=== PATIENT | female | born 1985 | race Caucasian/White ===

== ENCOUNTER 2016-06-28 11:10 | Emergency (ER) | payer OTHER ==
[2016-06-28] MEDS ORDERED: LORazepam INJ* 2 MG/ML 1 ML VIAL IV PUSH ONE (13:59)
--- NOTE | 2016-06-28 14:20 | RAD ---
Indication: Chest pain. Single frontal view of the chest performed at 1400 hours was reviewed. No prior study is available for comparison. No mediastinal shift is noted. Heart is of normal size and configuration. Lung chawla appear clear. IMPRESSION: NO ACTIVE CARDIOPULMONARY DISEASE IS NOTED.
[2016-06-28 14:29] LABS: Hematocrit 45 % (35-47); Hemoglobin 15.2 g/dl (12.0-16.0); Mean Corpuscular HGB Conc 34 g/dl (31-36); Mean Corpuscular Hemoglobin 31 pg (27-31); Mean Corpuscular Volume 92 fL (80-97); Mean Platelet Volume 9 um3 (7.4-10.4); Red Blood Count 4.87 10^6/ul (4.0-5.4); Red Cell Distribution Width 13 % (10.5-15); White Blood Count 6.5 10^3/ul (3.5-10.8)
[2016-06-28 14:46] LABS: BUN/Creatinine Ratio 11.8 (8-20); EGFR African American 130.7 (>60); EGFR Non-African American 101.6 (>60); Globulin 2.6 g/dL (2-4); Potassium 3.2 mmol/L (3.5-5.0); Total Bilirubin 0.6 mg/dL (0.2-1.0); Total Protein 7.6 g/dL (6.4-8.9)
[2016-06-28 15:26] LABS: TSH (Thyroid Stimulating Horm) 0.71 mcIU/mL (0.34-5.60)
[2016-06-28] MEDS ORDERED: Potassium Chlor TAB* 20 MEQ TAB.ER PO ONE (15:34)
--- NOTE | 2016-06-28 16:17 | ED ---
Brianne Carrillo Rebecca, scribed for Vladimir Poole MD on 06/28/16 at 1358 . HPI Chest Pain - HPI Summary HPI Summary: Pt is a 31 y/o F who presents to ED c/o CP. Pain began 3 days ago and has been constant since onset. Pain is in the right lateral region with radiation to the back, RUE and RLE. Pain is currently mild, ranked 3/10 and characterized as burning. Sx aggravated by deep breaths, alleviated by nothing, unchanged by Xanax. Additionally c/o pulsating in the neck and belching. SHx daily drinking for 4 years (ceased a few days ago). LNMP was 2015. PMHx scoliosis, anxiety. PSHx Paragard implantation (copper IUD) which she reports she "hasn't felt right" since then. No SHx smoking. - History of Current Complaint Chief Complaint: EDChestWallPain Time Seen by Provider: 06/28/16 13:50 Hx Obtained From: Patient Onset/Duration: Started Days Ago - 3 days ago, Still Present Timing: Constant Initial Severity: Mild Current Severity: Mild Pain Intensity: 3 Pain Scale Used: 0-10 Numeric Chest Pain Location: Right Lateral Chest Pain Radiates: Yes Chest Pain Radiates To:: Back, Arm - RUE, Other - RLE Character: Burning Aggravating Factor(s): Deep Breaths Alleviating Factor(s): Nothing Associated Signs and Symptoms: Positive: Chest Pain, Other: - Belching, pulsating in the neck - Allergy/Home Medications Allergies/Adverse Reactions: Allergies Allergy/AdvReac Type Severity Reaction Status Date / Time Amoxicillin Allergy Severe Hives Verified 06/28/16 11:20 Red Dye Allergy Severe Hives Verified 06/28/16 11:20 PMH/Surg Hx/FS Hx/Imm Hx Musculoskeletal History: Reports: Hx Scoliosis Psychiatric History: Reports: Hx Anxiety - Surgical History Surgery Procedure, Year, and Place: PARAGARD IMPLANTATION (MAY 25, 2016) Infectious Disease History: No Infectious Disease History: Denies: Traveled Outside the [place] in Last 30 Days - Family History Known Family History: Positive: Other - "skeletal issues," osteoarthritis, Crohn 's - Social History Alcohol Use: Daily - For 4 years, ceased a few days ago Hx Tobacco Use: No Smoking Status (MU): Never Smoked Tobacco Review of Systems Positive: Other Positive: Chest Pain - Right lateral Positive: Other - Belching Positive: Other - Pulsating in the neck All Other Systems Reviewed And Are Negative: Yes Physical Exam - Summary Physical Exam Summary: VITAL SIGNS: Reviewed. GENERAL: Patient is a anxious female. Patient is not in any acute respiratory distress. HEAD AND FACE: No signs of trauma. No ecchymosis, hematomas or skull depressions. No sinus tenderness. EYES: PERRLA, EOMI x 2, No injected conjunctiva, no nystagmus. EARS: Hearing grossly intact. Ear canals and tympanic membranes are within normal limits. MOUTH: Oropharynx within normal limits. NECK: Supple, trachea is midline, no adenopathy, no JVD, no carotid bruit, no c- spine tenderness, neck with full ROM. CHEST: Symmetric, no tenderness at palpation LUNGS: Clear to auscultation bilaterally. No wheezing or crackles. CVS: Regular rate and rhythm, S1 and S2 present, no murmurs or gallops appreciated. ABDOMEN: Soft, non-tender. No signs of distention. No rebound no guarding, and no masses palpated. Bowel sounds are normal. EXTREMITIES: FROM in all major joints, no edema, no cyanosis or clubbing. NEURO: Alert and oriented x 3. No acute neurological deficits. Speech is normal and follows commands. SKIN: Dry and warm Triage Information Reviewed: Yes Vital Signs On Initial Exam: Initial Vitals Temp Pulse Resp BP Pulse Ox 97.9 F 112 18 146/91 100 06/28/16 11:11 06/28/16 11:11 06/28/16 11:11 06/28/16 11:11 06/28/16 11:11 Vital Signs Reviewed: Yes Diagnostics - Vital Signs Vital Signs Temp Pulse Resp BP Pulse Ox 06/28/16 11:11 97.9 F 112 18 146/91 100 - Laboratory Result Diagrams: 06/28/16 14:17 06/28/16 14:17 Lab Statement: Any lab studies that have been ordered have been reviewed, and results considered in the medical decision making process. - Radiology CXR Xray Interpretation: No Acute Changes - NO ACTIVE CARDIOPULMONARY DISEASE IS NOTED. Radiology Interpretation Completed By: Radiologist - EKG 1128 Cardiac Rate: Tachycardia - 102 bpm EKG Rhythm: Sinus Tachycardia EKG Interpretation: No ST elevation Re-Evaluation - Re-Evaluation First Eval Re-Evaluation Time: 16:08 Change: Improved Comment: Pt is feeling significantly better. Chest Pain Course/Dx - Course Assessment/Plan: 31 y/o F who presents to ED with a CC of having CP that radiates out of the chest, anxiety, and nervousness for the last couple days. Pt went to another ER a couple days ago where they did a head CT and everything was normal. Test results w/in normal limits, EKG shows no ST elevation, CXR shows no cardiopulmonary disease. In the ED course, pt was given Ativan and all her sx resolved. At this time I disclosed all my findings and test results w/ pt and the need to follow up with PCP. Pt reports she has Xanax at home, she was recommended to only take when very anxious. She understands and agrees. Pt is hemodynamically stable and AxO x3. Patient reports that all symptoms have resolved. Patient has been observed in the ER for approximately 3 hours. Because the patient has no significant comorbidities and no family history of cardiovascular disease the patient will be discharged home with follow up of PMD. I discussed all the findings and test results with the patient. Patient was instructed to return to the emergency room immediately if any of the symptoms return or worsens. Patient understands and agrees. Plan of care was discussed with the patient and patient understands and agrees. All questions were answered at patient satisfaction. There were no further complaints or concerns. PE before discharge: CVS: S1 and S2 present. No murmurs appreciated. Abdominal exam before discharge: Soft, non-tender. No signs of distention. No rebound no guarding, and no masses palpated. Bowel sounds are normal. Patient is alert and oriented x 3. Patient is hemodynamically stable. - Diagnoses Provider Diagnoses: Chest pain, Anxiety Discharge - Discharge Plan Condition: Stable Disposition: HOME Patient Education Materials: Chest Pain (ED), Anxiety (ED) Referrals: Elvira Mcguire PA [Primary Care Provider] - 3 Days (Follow up with your primary care physician in 3 days. ) Additional Instructions: Return to ED for any returning or worsening symptoms. The documentation as recorded by the Brianne camejo Rebecca accurately reflects the service I personally performed and the decisions made by me, Vladimir Poole MD.
[2016-06-28 16:21] LABS: Urine Bilirubin Negative (Negative); Urine Glucose Negative (Negative); Urine Nitrite Negative (Negative)
[2016-06-28 16:33] VITALS: BP 135/84
== END 2016-06-28 16:33 | disposition home or self-care (01) ==
LOC: ED 11:10
DX: R07.9 Chest pain, unspecified (principal); F41.1 Generalized anxiety disorder
CPT/HCPCS: 36415; 71010; 80053; 81003; 82553; 83880; 84443; 84484; 85025; 93005; 96374; 99283; A9270-GY; J2060

== ENCOUNTER 2016-07-09 10:35 | Emergency (ER) | payer OTHER ==
[2016-07-09 11:35] VITALS: BP 145/98
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
== END 2016-07-09 13:01 | disposition home or self-care (01) ==
LOC: UCEAST 10:35
DX: F41.9 Anxiety disorder, unspecified (principal)
CPT/HCPCS: 99212; G0463

== ENCOUNTER 2016-08-14 12:44 | Emergency (ER) | payer OTHER ==
--- NOTE | 2016-08-14 13:45 | ED ---
Dhaval Carrillo Anna, scribed for Umu Boles MD on 08/14/16 at 1320 . HPI Chest Pain - HPI Summary HPI Summary: Patient is a 31 y/o female coming to [facility] presenting with chest wall pain that began two months ago. She additionally reports fatigue, bone pain, unintentional weight loss of 11 lbs in the past two months, soreness in right collar bone, itching in her scalp, right flank pain, and swollen and tender lymph nodes, especially on the right side. She denies urinary symptoms, vomiting , and diarrhea. She was recently dx with panic disorder. She has seen her doctor , who has not made any diagnosis after completion of blood work, US on neck, and MRI on neck. Her history is significant for scoliosis. She has been taking Klonopin since 07/01/2016. She spent much time camping outside this summer and lives near [facility]. She has not recently been sexually active. - History of Current Complaint Chief Complaint: EDGeneral Hx Obtained From: Patient Pain Intensity: 4 Pain Scale Used: 0-10 Numeric - Allergy/Home Medications Allergies/Adverse Reactions: Allergies Allergy/AdvReac Type Severity Reaction Status Date / Time Amoxicillin Allergy Severe Hives Verified 08/01/16 15:08 Red Dye Allergy Severe Hives Verified 08/01/16 15:08 PMH/Surg Hx/FS Hx/Imm Hx Endocrine/Hematology History: Denies: Hx Diabetes Cardiovascular History: Denies: Hx Hypertension, Hx Pacemaker/ICD, Other Cardiovascular Problems/ Disorders History: Denies: Hx Renal Disease Musculoskeletal History: Reports: Hx Scoliosis Sensory History: Denies: Hx Hearing Aid Psychiatric History: Reports: Hx Anxiety, Hx Panic Disorder - Surgical History Surgery Procedure, Year, and Place: PARAGARD IMPLANTATION (MAY 25, 2016) Infectious Disease History: No Infectious Disease History: Denies: Traveled Outside the [place] in Last 30 Days - Family History Known Family History: Positive: Other - "skeletal issues," osteoarthritis, Crohn 's, alcohol abuse disorders - Social History Lives: With Family Alcohol Use: was drink 3-4 drinks a day 3-4 times a week but st Alcohol Amount: 3-4 drinks per week Substance Use Type: Reports: None Hx Tobacco Use: No Smoking Status (MU): Never Smoked Tobacco Review of Systems Positive: Fatigue, Other - unintentional weight loss Positive: Other - swollen and tender lymphnodes Positive: Chest Pain Positive: Abdominal Pain - right flank pain. Negative: Diarrhea Positive: no symptoms reported Positive: Arthralgia Positive: Other - itchy scalp All Other Systems Reviewed And Are Negative: Yes Physical Exam Triage Information Reviewed: Yes Vital Signs On Initial Exam: Initial Vitals Temp Pulse Resp BP Pulse Ox 97.6 F 85 16 135/92 100 08/14/16 12:46 08/14/16 12:46 08/14/16 12:46 08/14/16 12:46 08/14/16 12:46 Vital Signs Reviewed: Yes Appearance: Positive: Well-Appearing, No Pain Distress Skin: Positive: Warm, Skin Color Reflects Adequate Perfusion, Dry Eyes: Positive: EOMI, ANA PAULA ENT: Positive: Pharynx normal, TMs normal Neck: Positive: Supple, Nontender Respiratory/Lung Sounds: Positive: Clear to Auscultation, Breath Sounds Present. Negative: Rales, Rhonchi, Wheezes Cardiovascular: Positive: RRR, Other - no gallops. Negative: Murmur, Rub Abdomen Description: Positive: Nontender, Soft, Other: - no rebound. Negative: Distended, Guarding Bowel Sounds: Positive: Present Musculoskeletal: Positive: Strength/ROM Intact. Negative: Edema Left, Edema Right Neurological: Positive: Sensory/Motor Intact, Alert, Oriented to Person Place, Time, CN Intact II-III - II-XII Psychiatric: Positive: Affect/Mood Appropriate Diagnostics - Vital Signs Vital Signs Temp Pulse Resp BP Pulse Ox 08/14/16 12:46 97.6 F 85 16 135/92 100 - Laboratory Lab Statement: Any lab studies that have been ordered have been reviewed, and results considered in the medical decision making process. Chest Pain Course/Dx - Course Course Of Treatment: 31 yo female with big workup by pmd and gi for multiple complaints. here becasue she still isnt' feeling better. talked with her about repeating some of her labs and adding on autoimmune labs and a 2nd lyme titer. Also suggested to pt she may want to look into alternative forms of medicine that may better address her concerns like [place] [facility] or accupuncture. Pt will make an appt with her pmd in several weeks to address the labs done today most of which are send outs. - Diagnoses Provider Diagnoses: Myalgia Discharge - Discharge Plan Condition: Stable Disposition: HOME Referrals: Micah Stover MD [Primary Care Provider] - Additional Instructions: Follow up with primary care physician regarding lab results. Return to the emergency department for changing or worsening symptoms. The documentation as recorded by the Dhaval camejo Anna accurately reflects the service I personally performed and the decisions made by me, Umu Boles MD.
[2016-08-14 13:58] LABS: Hematocrit 41 % (35-47); Mean Corpuscular HGB Conc 34 g/dl (31-36); Mean Corpuscular Hemoglobin 31 pg (27-31); Mean Corpuscular Volume 92 fL (80-97); Mean Platelet Volume 9 um3 (7.4-10.4); Red Blood Count 4.49 10^6/ul (4.0-5.4); Red Cell Distribution Width 13 % (10.5-15); White Blood Count 5.2 10^3/ul (3.5-10.8)
[2016-08-14 14:05] VITALS: BP 138/89
[2016-08-14 14:17] LABS: C Reactive Protein < 1.00 mg/L (< 5.00)
[2016-08-14 15:42] LABS: TSH (Thyroid Stimulating Horm) 0.84 mcIU/mL (0.34-5.60)
[2016-08-14 16:53] LABS: Erythrocyte Sed Rate 8 mm/Hr (0-14)
[2016-08-16 15:24] LABS: Lyme Disease IgG Ab WB Negative (Negative)
== END 2016-08-14 14:04 | disposition home or self-care (01) ==
LOC: ED 12:44
DX: M79.1 Myalgia (principal); R07.89 Other chest pain; R53.83 Other fatigue; R10.9 Unspecified abdominal pain; R63.4 Abnormal weight loss
CPT/HCPCS: 36415; 84443; 85025; 85652; 86038; 86140; 86617; 86663; 99282

== ENCOUNTER 2017-03-25 10:21 | Emergency (ER) | payer OTHER ==
[2017-03-25 10:53] VITALS: BP 117/85
--- NOTE | 2017-04-14 16:00 | UC ---
Samy Carrillo Benjamin, scribed for Keiko Quesada DO on 03/25/17 at 1143 . Cardiac HPI - HPI Summary HPI Summary: 31yo female right anterior and lateral chest pain for a week that radiates to right shoulder blade. Pt also reports intermittently getting SOB. PAin has been aching kind of pain until now but this morning, pt woke up with burning. Rates the pain as 4/10 scale. Pt states that her pain gets worse with heavy lifting and deep breathing. Pt also says she has been having increased frequency of urination for 2 months. Pt is under a lot of stress. FHx of CAD, DM, HTN. 1 month ago, pt has pain in her right ribs. - History of Current Complaint Chief Complaint: UCChestPain Stated Complaint: RIB PAIN Time Seen by Provider: 03/25/17 11:13 Hx Obtained From: Patient, Family/Clinical Geneticist - grandmother Hx Last Menstrual Period: 03/18/17 Onset/Duration: Gradual Onset, Lasting Days Timing: Intermittent Episodes Lasting: Initial Severity: Moderate Current Severity: Moderate Pain Intensity: 4 Chest Pain Location: Right Lateral Character: Sharp/Stabbing Aggravating Factor(s): Movement Alleviating Factor(s): Rest, Position Associated Signs & Symptoms: Positive: Recent Stress - Allergy/Home Medications Allergies/Adverse Reactions: Allergies Allergy/AdvReac Type Severity Reaction Status Date / Time Amoxicillin Allergy Severe Hives Verified 03/25/17 10:47 Red Dye Allergy Severe Hives Verified 03/25/17 10:47 PMH/Surg Hx/FS Hx/Imm Hx - Additional Past Medical History Additional PMH: spinal stenosis, DDD, scoliosis. - Surgical History Surgical History: None Surgery Procedure, Year, and Place: PARAGARD IMPLANTATION (MAY 25, 2016) - Family History Known Family History: Positive: Cardiac Disease, Hypertension, Diabetes, Other - "skeletal issues," osteoarthritis, Crohn's, alcohol abuse disorders - Social History Alcohol Use: Weekly Alcohol Amount: 3-4 drinks per week Substance Use Type: None Smoking Status (MU): Never Smoked Tobacco Household Exposure Type: Cigarettes Review of Systems Constitutional: Negative Skin: Negative Eyes: Negative ENT: Negative Respiratory: Shortness Of Breath Cardiovascular: Chest Pain Gastrointestinal: Negative Genitourinary: Negative Motor: Negative Neurovascular: Negative Musculoskeletal: Negative Neurological: Negative Psychological: Negative All Other Systems Reviewed And Are Negative: Yes Physical Exam Triage Information Reviewed: Yes Appearance: Well-Appearing, No Pain Distress, Well-Nourished Vital Signs: Initial Vital Signs Temp 97.8 F 03/25/17 10:48 Pulse 69 03/25/17 10:48 Resp 16 03/25/17 10:48 BP 117/85 03/25/17 10:48 Pulse Ox 100 03/25/17 10:48 Vital Signs Reviewed: Yes Eyes: Positive: Conjunctiva Clear. Negative: Discharge ENT: Positive: Normal ENT inspection, Hearing grossly normal. Negative: Muffled /hoarse voice Neck: Positive: Supple, Nontender Respiratory: Positive: Lungs clear, Normal breath sounds, No respiratory distress, No accessory muscle use Cardiovascular: Positive: RRR, No Murmur Bowel Sounds: Positive: Present Musculoskeletal: Positive: Strength Intact, ROM Intact, Other: - Palpable muscle spasm on the curvature of the right lumbar-thoracic spine. Tender to palpation in band like distribution on the right rib. Neurological: Positive: Alert, Muscle Tone Normal Psychological Exam: Normal Psychological: Positive: Age Appropriate Behavior Skin Exam: Normal Skin: Negative: rashes Diagnostics - EKG Cardiac Rate: NL - 66bpm Cardiac Rhythm: Sinus: Normal - EKG taken at 11:55. no ST changes, no ectopic beats. Ectopy: None ST Segment: Normal - Clinical Impression Provider Diagnoses: shingles Discharge - Discharge Plan Condition: Stable Disposition: HOME Prescriptions: HYDROcodone/ACETAMIN 5-325 MG* [[place] 5-325 TAB*] 1 tab PO Q6H PRN #14 tab MDD 4 TABS PRN Reason: Pain ValACYclovir (*) [Valtrex (*)] 1 gm PO TID #21 tab Patient Education Materials: Shingles (ED) Forms: *Work Release Referrals: Micah Stover MD [Medical Doctor] - (FOLLOW UP IN 3-5 DAYS) Additional Instructions: VALTREX: VALTREX is used to treat infections caused by the Herpes family of viruses. It's available as capsules or ointment. VALTREX is most effective if started at the first sign of the viral outbreak. It can decrease the severity and duration of symptoms. However, it doesn't eliminate the virus from the body completely. If you're prone to repeated outbreaks of herpes, you'll continue to have attacks. Take the pills for the full recommended course. Occasionally, mild nausea or headaches may occur. Call the doctor if you develop wheezing, itching, rash, shortness of breath , or lightheadedness. ORAL NARCOTIC MEDICATION: You have been given a prescription for pain control. This medication is a narcotic. It's best taken with food, as nausea can result if taken on an empty stomach. Don't operate machinery or drive within six hours of taking this medication. Do not combine this medicine with alcohol, or with any medication which can cause sedation (such as cold tablets or sleeping pills) unless you get permission from the physician. Narcotics tend to cause constipation. If possible, drink plenty of fluids and eat a diet high in fiber and fruits. WE ARE TREATING YOU FOR SHINGLES. HOWEVER, THER IS THE POSSIBILITY THAT YOU PAIN IS GENERATED FROM ASPECT OF YOUR CHEST WALL, SUCH YOUR RIB. CHEST WALL PAIN CAN BE SECONDARY TO THE CURVATURE IN YOUR SPINE. IF YOUR PAIN DOES NOT RESOLVE WITH THE USE OF VALTREX, YOU MAY BENEFIT FROM SEEING AN OSTEOPATH FOR OSTEOPATHIC MANIPULATION. WE RECOMMEND THAT YOU FIND AN OSTEOPATHIC PHYSICIAN IN YOUR AREA WHO DOES LYMPHATIC, MYOFACIAL AND VISCERAL WORK The documentation as recorded by the Samy camejo Benjamin accurately reflects the service I personally performed and the decisions made by me, Keiko Quesada DO.
== END 2017-03-25 12:31 | disposition home or self-care (01) ==
LOC: UCEAST 10:21
DX: B02.9 Zoster without complications (principal); R06.02 Shortness of breath; R35.0 Frequency of micturition; M48.00 Spinal stenosis, site unspecified; M41.9 Scoliosis, unspecified; F43.9 Reaction to severe stress, unspecified; Z88.1 Allergy status to other antibiotic agents; Z77.22 Contact with and (suspected) exposure to environmental tobacco smoke (acute) (chronic)
CPT/HCPCS: 93005; 99212; G0463

== ENCOUNTER 2017-07-04 09:12 | Emergency (ER) | payer OTHER ==
[2017-07-04 10:07] LABS: ABS Basophils 0 10^3/ul (0-0.2); ABS Eosinophils 0 10^3/ul (0-0.6); ABS Lymphocytes 1.1 10^3/ul (1.0-4.8); ABS Monocytes 0.3 10^3/ul (0-0.8); ABS Neutrophils 3.1 10^3/ul (1.5-7.7); ABS Nucleated RBC 0 10^3/ul; Eosinophil % 0.4 % (0-6); Hematocrit 41 % (35-47); Hemoglobin 13.9 g/dl (12.0-16.0); Lymphocyte % 23.6 % (25-47); Mean Corpuscular HGB Conc 34 g/dl (31-36); Mean Corpuscular Hemoglobin 32 pg (27-31); Mean Corpuscular Volume 93 fL (80-97); Mean Platelet Volume 9 um3 (7.4-10.4); Nucleated Red Blood Cells % 0.1; Platelet Count 223 10^3/ul (150-450); Red Blood Count 4.36 10^6/ul (4.0-5.4); Red Cell Distribution Width 13 % (10.5-15); White Blood Count 4.5 10^3/ul (3.5-10.8)
--- NOTE | 2017-07-04 10:23 | RAD ---
Indication: Chest pain. Single frontal view of the chest performed at 1003 hours was reviewed. Comparison is made with previous exam dated June 28, 2016. No mediastinal shift is noted. Heart is of normal size and configuration. Lung chawla appear clear. IMPRESSION: NO ACTIVE CARDIOPULMONARY DISEASE IS NOTED.
[2017-07-04 10:29] LABS: INR 0.98 (0.77-1.02)
[2017-07-04 10:36] LABS: EGFR Non-African American 100.9 (>60)
[2017-07-04 13:56] VITALS: BP 114/62
--- NOTE | 2017-07-04 14:30 | ED ---
Carl Carrillo Angela, scribed for Oscar Schumacher MD on 07/04/17 at 0926 . HPI Chest Pain - HPI Summary HPI Summary: This pt is a 32 y/o female, accomanied by her grandmother, presenting to [facility] c /o intermittent right sided chest pain for more than a couple of weeks, now left sided chest pain since last night. She reports yesterday she went to lay down and felt a flutter. Pt notes her pain radiates down her sternum and under her breast. Denies LE edema, nausea, vomiting, diaphoresis. Pt has seen her PCP (Dr. Erick Camarena) for this chest pain but was told it was related to her scoliosis. Her pain is aggravated with laughing. - History of Current Complaint Chief Complaint: EDChestPainROMI Time Seen by Provider: 07/04/17 09:23 Hx Obtained From: Patient Hx Last Menstrual Period: 03/18/17 Onset/Duration: Started Days Ago, Still Present Timing: Lasting Days Current Severity: Moderate Pain Intensity: 4 Pain Scale Used: 0-10 Numeric Chest Pain Location: Mid Sternal Chest Pain Radiates: Yes Chest Pain Radiates To:: Other - under breast Aggravating Factor(s): Other: - laughing hard Alleviating Factor(s): Nothing Associated Signs and Symptoms: Positive: Chest Pain. Negative: Diaphoresis, Nausea, Calf Pain/Swelling - Allergy/Home Medications Allergies/Adverse Reactions: Allergies Allergy/AdvReac Type Severity Reaction Status Date / Time Amoxicillin Allergy Severe Hives Verified 07/04/17 09:30 Red Dye Allergy Severe Hives Verified 07/04/17 09:30 PMH/Surg Hx/FS Hx/Imm Hx Endocrine/Hematology History: Denies: Hx Diabetes Cardiovascular History: Denies: Hx Hypertension, Hx Pacemaker/ICD, Other Cardiovascular Problems/ Disorders History: Denies: Hx Renal Disease Musculoskeletal History: Reports: Hx Scoliosis Sensory History: Denies: Hx Hearing Aid Psychiatric History: Reports: Hx Anxiety, Hx Panic Disorder - Surgical History Surgery Procedure, Year, and Place: PARAGARD IMPLANTATION (MAY 25, 2016) Infectious Disease History: No Infectious Disease History: Denies: Traveled Outside the [place] in Last 30 Days - Family History Known Family History: Positive: Cardiac Disease, Hypertension, Diabetes, Other - "skeletal issues," osteoarthritis, Crohn's, alcohol abuse disorders - Social History Alcohol Use: Weekly Alcohol Amount: 3-4 drinks per week Substance Use Type: Reports: None Hx Tobacco Use: No Smoking Status (MU): Never Smoked Tobacco Review of Systems Negative: Fever, Chills, Skin Diaphoresis Positive: Chest Pain Negative: Vomiting, Nausea Negative: Edema - in LE All Other Systems Reviewed And Are Negative: Yes Physical Exam - Summary Physical Exam Summary: Appearance: The patient is well-nourished in no acute distress and in no acute pain. Skin: The skin is warm and dry and skin color reflects adequate perfusion. HEENT: The head is normocephalic and atraumatic. The pupils are equal and reactive. The conjunctivae are clear and without drainage. Nares are patent and without drainage. Mouth reveals moist mucous membranes and the throat is without erythema and exudate. The external ears are intact. The ear canals are patent and without drainage. The tympanic membranes are intact. Neck: the neck is supple with full range of motion and non-tender. There are no carotid bruits. There is no neck vein distension. Respiratory: Chest is non-tender. Lungs are clear to auscultation and breath sounds are symmetrical and equal. Cardiovascular: Heart is regular rate and rhythm. There is no murmur or rub auscultated. There is no peripheral edema and pulses are symmetrical and equal. Abdomen: The abdomen is soft and non-tender. There are normal bowel sounds heard in all four quadrants and there is no organomegaly palpated. Musculoskeletal: There is no back tenderness noted. Extremities are non-tender with full range of motion. There is good capillary refill. There is no peripheral edema or calf tenderness elicited. Neurological: Patient is alert and oriented to person, place and time. The patient has symmetrical motor strength in all four extremities. Cranial nerves are grossly intact. Deep tendon reflexes are symmetrical and equal in all four extremities. Psychiatric: The patient has an appropriate affect and does not exhibit any anxiety or depression. Triage Information Reviewed: Yes Vital Signs On Initial Exam: Initial Vitals Temp Pulse Resp BP Pulse Ox 98.6 F 95 18 152/82 100 07/04/17 09:16 07/04/17 09:16 07/04/17 09:16 07/04/17 09:16 07/04/17 09:16 Vital Signs Reviewed: Yes Diagnostics - Vital Signs Vital Signs Temp Pulse Resp BP Pulse Ox 07/04/17 09:16 98.6 F 95 18 152/82 100 - Laboratory Lab Results: Lab Results 07/04/17 07/04/17 07/04/17 Range/Units 09:53 09:53 09:53 WBC 4.5 (3.5-10.8) 10^3/ul RBC 4.36 (4.0-5.4) 10^6/ul Hgb 13.9 (12.0-16.0) g/dl Hct 41 (35-47) % MCV 93 (80-97) fL MCH 32 H (27-31) pg MCHC 34 (31-36) g/dl RDW 13 (10.5-15) % Plt Count 223 (150-450) 10^3/ul MPV 9 (7.4-10.4) um3 Neut % (Auto) 68.6 (38-83) % Lymph % (Auto) 23.6 L (25-47) % [place] % (Auto) 6.7 (1-9) % Eos % (Auto) 0.4 (0-6) % Baso % (Auto) 0.7 (0-2) % Absolute Neuts (auto) 3.1 (1.5-7.7) 10^3/ul Absolute Lymphs (auto) 1.1 (1.0-4.8) 10^3/ul Absolute Monos (auto) 0.3 (0-0.8) 10^3/ul Absolute Eos (auto) 0 (0-0.6) 10^3/ul Absolute Basos (auto) 0 (0-0.2) 10^3/ul Absolute Nucleated RBC 0 10^3/ul Nucleated RBC % 0.1 INR (Anticoag Therapy) 0.98 (0.77-1.02) D-Dimer, Quantitative < 200 (Less Than 230) ng/mL Sodium 138 (133-145) mmol/L Potassium 3.8 (3.5-5.0) mmol/L Chloride 108 (101-111) mmol/L Carbon Dioxide 24 (22-32) mmol/L Anion Gap 6 (2-11) mmol/L BUN 8 (6-24) mg/dL Creatinine 0.68 (0.51-0.95) mg/dL Est GFR ( Amer) 129.8 (>60) Est GFR (Non-Af Amer) 100.9 (>60) BUN/Creatinine Ratio 11.8 (8-20) Glucose 97 (70-100) mg/dL Lactic Acid (0.5-2.0) mmol/L Calcium 9.0 (8.6-10.3) mg/dL Total Bilirubin 0.50 (0.2-1.0) mg/dL AST 15 (13-39) U/L ALT 14 (7-52) U/L Alkaline Phosphatase 39 (34-104) U/L Troponin I 0.00 (<0.04) ng/mL Total Protein 6.3 L (6.4-8.9) g/dL Albumin 4.1 (3.2-5.2) g/dL Globulin 2.2 (2-4) g/dL Albumin/Globulin Ratio 1.9 (1-3) TSH 0.66 (0.34-5.60) mcIU/mL Beta HCG, Quant < 0.60 mIU/mL 07/04/17 07/04/17 Range/Units 09:53 13:04 WBC (3.5-10.8) 10^3/ul RBC (4.0-5.4) 10^6/ul Hgb (12.0-16.0) g/dl Hct (35-47) % MCV (80-97) fL MCH (27-31) pg MCHC (31-36) g/dl RDW (10.5-15) % Plt Count (150-450) 10^3/ul MPV (7.4-10.4) um3 Neut % (Auto) (38-83) % Lymph % (Auto) (25-47) % [place] % (Auto) (1-9) % Eos % (Auto) (0-6) % Baso % (Auto) (0-2) % Absolute Neuts (auto) (1.5-7.7) 10^3/ul Absolute Lymphs (auto) (1.0-4.8) 10^3/ul Absolute Monos (auto) (0-0.8) 10^3/ul Absolute Eos (auto) (0-0.6) 10^3/ul Absolute Basos (auto) (0-0.2) 10^3/ul Absolute Nucleated RBC 10^3/ul Nucleated RBC % INR (Anticoag Therapy) (0.77-1.02) D-Dimer, Quantitative (Less Than 230) ng/mL Sodium (133-145) mmol/L Potassium (3.5-5.0) mmol/L Chloride (101-111) mmol/L Carbon Dioxide (22-32) mmol/L Anion Gap (2-11) mmol/L BUN (6-24) mg/dL Creatinine (0.51-0.95) mg/dL Est GFR ( Amer) (>60) Est GFR (Non-Af Amer) (>60) BUN/Creatinine Ratio (8-20) Glucose (70-100) mg/dL Lactic Acid 0.8 (0.5-2.0) mmol/L Calcium (8.6-10.3) mg/dL Total Bilirubin (0.2-1.0) mg/dL AST (13-39) U/L ALT (7-52) U/L Alkaline Phosphatase (34-104) U/L Troponin I 0.00 (<0.04) ng/mL Total Protein (6.4-8.9) g/dL Albumin (3.2-5.2) g/dL Globulin (2-4) g/dL Albumin/Globulin Ratio (1-3) TSH (0.34-5.60) mcIU/mL Beta HCG, Quant mIU/mL Result Diagrams: 07/04/17 09:53 07/04/17 09:53 Lab Statement: Any lab studies that have been ordered have been reviewed, and results considered in the medical decision making process. - Radiology Chest XR Xray Interpretation: No Acute Changes - IMPRESSION: No active cardiopulmonary disease is noted. Dr. Schumacher has reviewed this radiology report. Radiology Interpretation Completed By: Radiologist - EKG 09:47 Cardiac Rate: NL EKG Rhythm: Sinus Rhythm - at 94 bpm EKG Interpretation: Vertical axis. Chest Pain Course/Dx - Course Course Of Treatment: Ms. Fernandez presented with a concern that the chest pain which she has had for several weeks on the right side of her chest has moved to the left this AM. She has seen her PMD who felt this was likely radicular secondary to her scoliosis. She has no assovciated symptoms of exacerbating or relieving factors. Her W/U here was negative including a d-dimer and two troponins. - Diagnoses Provider Diagnoses: Chest pain Discharge - Discharge Plan Condition: Stable Disposition: HOME Patient Education Materials: Chest Pain (ED) Referrals: Migue CRAFT,Erick Rey [Primary Care Provider] - Additional Instructions: Please follow up with your primary care provider. RETURN TO THE ED FOR ANY WORSENING SYMPTOMS. The documentation as recorded by the Carl camejo Angela accurately reflects the service I personally performed and the decisions made by me, Oscar Schumacher MD.
== END 2017-07-04 14:00 | disposition home or self-care (01) ==
LOC: ED 09:12
DX: R07.9 Chest pain, unspecified (principal)
CPT/HCPCS: 36415; 71045; 80053; 83605; 84443; 84484; 84702; 85025; 85379; 85610; 93005; 99283